=== PATIENT | male | born 1950 | race Caucasian/White ===

== ENCOUNTER 2017-09-01 10:47 | Emergency (ER) | payer MEDICARE, OTHER ==
[~2017-09-01 10:47] MED LIST: Sodium Chloride 0.9% 1,000 ML BAG ONE; Sodium Chloride 0.9% 100 ML BAG ONE
[2017-09-01] MEDS ORDERED: Ondansetron HCl/PF 4 MG/2 ML Vial ONE (11:07)
--- NOTE | 2017-09-01 11:21 | RAD ---
CHEST ONE VIEW: History: Pain, nausea, vomiting. Comparison: 10-18-11 FINDINGS: Lungs are hyperinflated with vascular crowding and enlargement of the cardiac silhouette. Mild inters titial prominence. No pneumothorax. Mild blunting of the left costophrenic sulcus. IMPRESSION: Findings likely related to lung hyperinflation and vascular crowding. If there is concern for acute p rocess, two views in full inspiration are recommended. POS: ANGÉLICA
[2017-09-01 11:48] LABS: #Lymphocytes 1.1 thou/uL (1.20-3.40); #Neutrophils 17.2 thou/uL (1.40-6.50); %Basophils 0.2 % (0.0-1.0); %Lymphocytes 5.8 % (21.0-51.0); Mean Corpuscular Hemoglobin 31.1 pg (27.0-31.0); Mean Corpuscular Volume 91.6 fl (80.0-94.0); Mean Platelet Volume 6.7 fL (7.4-10.4); Platelet Count 250 thou/uL (130-400); RBC Distribution Width 11.1 % (11.5-14.5); Red Blood Cell (RBC) Count 5.47 mill/uL (4.70-6.10); White Blood Cell (WBC) Count 19.3 thou/uL (4.8-10.8)
[2017-09-01] MEDS ORDERED: Fentanyl 100 MCG/2 ML VIAL ONE ×2 (12:00→13:44)
[2017-09-01 12:02] LABS: ALT (SGPT) 45 U/L (8-55); AST (SGOT) 22 U/L (5-34); Albumin 4.3 g/dL (3.4-4.8); Alkaline Phosphatase 110 U/L (40-150); Anion Gap 16 mmol/L (10-20); BUN (Urea Nitrogen) 15 mg/dL (8.4-25.7); Bilirubin, Total 0.5 mg/dL (0.2-1.2); Calc. Creatinine Clearance 0 mL/min (70-130); Carbon Dioxide 21 mmol/L (23-31); Chloride 104 mmol/L (98-107); Estimated GFR-MDRD Greater than 90; Globulin 3.1 g/dL (2.4-3.5); Glucose 123 mg/dL (80-115); Potassium 4.1 mmol/L (3.5-5.1); Protein, Total 7.4 g/dL (5.8-8.1); Sodium 137 mmol/L (136-145)
[2017-09-01 12:04] LABS: CKMB 2.3 ng/mL (0-6.6); Troponin I Less than 0.010 ng/mL (< 0.028)
[2017-09-01 12:18] LABS: Bacteria/HPF Rare-Few HPF (None Seen); Bilirubin Negative (Negative); Blood, Urine Trace (Negative); Clarity Clear (Clear); Glucose, Urine (Dipstick) Negative (Negative); Leukocyte Negative (Negative); Nitrite Negative (Negative); Protein, Urine (Dipstick) Trace mg/dL (Neg-Trace); RBC/HPF 0-3 HPF (0-3); Squamous Epithelial 0-3 HPF (0-3); Urobilinogen 0.2 mg/dL (0.2-1.0); WBC/HPF 0-3 HPF (0-3)
[2017-09-01 12:31] LABS: Lipase 1248 U/L (8-78)
--- NOTE | 2017-09-01 13:13 | CT ---
CT ABDOMEN AND PELVIS: HISTORY: Nausea and vomiting. COMPARISON: Chest, abdomen, and pelvis CT from 10/18/2011. FINDINGS: Mild atelectatic changes in the lung bases. No pericardial effusion. Hepatic cysts present in hepatic segment 4A. Prior cholecystectomy. Mild intrahepatic and extrahepa tic biliary dilatation, likely reservoir effect, mildly progressed from the comparison 2012 examinati on. There are unchanged adrenal masses. Cystic structure of left kidney. Right kidney is similar. There is stranding around the pancreas, which is mildly atrophic. There is a hypodense mass in the p ancreatic body, similar to the comparison examination, measuring up to 2 cm. No dilated loops of large or small bowel. No peripancreatic fluid collection. 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 No free fluid in the pelvis. The prostate is enlarged. There is posterior spinal fusion hardware, lumbar spine. No acute osseous abnormality. IMPRESSION: 1. Findings suggesting acute edematous pancreatitis without complication. 2. Unchanged hypodense mass, pancreatic body/tail. 3. 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 4. 2.8 cm hyperdense mass superior pole right kidney is homogeneous and suggests hemorrhagic/proteina ceous cyst. Follow up ultrasound or dedicated renal ct/mri recommended nonemergently in 3 months. POS: ANGÉLICA
[2017-09-01] MEDS ORDERED: Promethazine HCl 25 MG/ML VIAL ONE (13:45)
[2017-09-01] MEDS ORDERED: Iopamidol 370 76% 100 ML VIAL ONE (14:18)
== END 2017-09-01 14:18 ==
LOC: MADERS 10:47
DX: K85.90 Acute pancreatitis without necrosis or infection, unspecified (principal); F17.210 Nicotine dependence, cigarettes, uncomplicated; Z79.891 Long term (current) use of opiate analgesic; Z79.899 Other long term (current) drug therapy
CPT/HCPCS: 36415; 71045; 74177; 80053; 81003; 81015; 82553; 83605; 83690; 84484; 85025; 96361; 96374; 96375; 96376; J2405; J2550; J3010; J7050